=== PATIENT | male | born 1980 | race African-American/Black ===

== ENCOUNTER 2017-03-07 11:47 | Day surgery (SDC) | payer OTHER ==
[~2017-03-07] VITALS: Ht 182.9 cm; Wt 113.0 kg
[~2017-03-07 11:47] MED LIST: ASPIRIN325 MG PO; CATAPRES0.1 MG PO; LASIX80 MG PO; NORMODYNE,TRAN200 MG PO; PROCARDIA XL60 MG PO; RENO CAPS SOFTGE1 MG PO; RENVELA800 MG PO
[2017-03-07 12:15] VITALS: BP 165/103
[2017-03-07 12:49] LABS: BASOPHIL COUNT 0.1 K/uL (0-0.1); EOSINOPHIL (%) 4.2 % (0-5); EOSINOPHIL COUNT 0.3 K/uL (0-0.3); HEMATOCRIT 40.7 % (38.0-50.0); IMMATURE GRANULOCYTE (%) 0.5 % (0.0-0.7); INSTRUMENT ABS NEUTROPHIL CT 3.9 K/uL; LYMPHOCYTE COUNT 1.4 K/uL (1.0-2.8); MCH 26.7 PG (29.0-34.0); MCHC 31.4 G/DL (30.0-36.0); MEAN PLAT.VOLUME 9.9 uM^3 (9.0-12.4); MONOCYTE (%) 7.3 % (3-12); MONOCYTE COUNT 0.4 K/uL (0-0.8); NEUTROPHIL (%) 64.1 % (45-76); NEUTROPHIL COUNT 3.9 K/uL (1.8-6.4); PLATELET COUNT 284 K/uL (156-360); RBC DIS.WIDTH-CV 17.6 % (11.8-14.6); RBC DIS.WIDTH-SD 54.4 % (39-53); RED BLOOD COUNT 4.79 M/uL (4.00-5.50)
[2017-03-07 12:54] LABS: ANION GAP 13 MEQ/L (2-14); CHLORIDE 94 MEQ/L (99-109); POTASSIUM 4.4 MEQ/L (3.7-5.4); SAMPLE HEMOLYSIS CHECK 0; SAMPLE ICTERIC CHECK 0; SAMPLE LIPEMIA CHECK 0; SODIUM 139 MEQ/L (136-147)
[2017-03-07 12:59] LABS: GFR ESTIMATE (CALCULATED) 15 mL/min/; GLUCOSE 90 mg/dL (70-99); UREA NITROGEN (BUN) 14 mg/dL (9-23)
[2017-03-07 13:22] LABS: METH RESISTANT S AUREUS PCR NEGATIVE (NEGATIVE); PROBE CHECK PASS; SPECIMEN PROCESSING CONTROL PASS
[2017-03-07] MEDS ORDERED: NORCO 5/3251 TABLET PO (15:06)
[2017-03-07 15:35] VITALS: BP 168/106
[2017-03-07 16:30] VITALS: BP 176/113
[2017-03-07 17:04] VITALS: BP 178/123
[2017-03-07 18:05] VITALS: BP 192/125
[2017-03-07 18:15] VITALS: BP 189/116
== END 2017-03-07 18:30 | disposition home or self-care (01) ==
LOC: SDC 11:47
PROVIDERS: Surgery
PROC: 0WHG43Z Insertion of Infusion Device into Peritoneal Cavity, Percutaneous Endoscopic Approach (ICD-10-PCS; principal; 2017-03-07)
DX: I12.0 Hypertensive chronic kidney disease with stage 5 chronic kidney disease or end stage renal disease (principal); N18.6 End stage renal disease; Z99.2 Dependence on renal dialysis; E21.3 Hyperparathyroidism, unspecified; D64.9 Anemia, unspecified; E78.00 Pure hypercholesterolemia, unspecified; E66.9 Obesity, unspecified; Z68.36 Body mass index [BMI] 36.0-36.9, adult; Z79.82 Long term (current) use of aspirin; F17.210 Nicotine dependence, cigarettes, uncomplicated; Z82.49 Family history of ischemic heart disease and other diseases of the circulatory system; Z83.3 Family history of diabetes mellitus; Z84.1 Family history of disorders of kidney and ureter
CPT/HCPCS: 80048; 85025; 87641; C1750; J0330; J0360; J0690; J1100; J1170; J2250; J2405; J2710; J3010; S0020